=== PATIENT | female | born 1985 | race Caucasian/White ===

== ENCOUNTER 2024-11-24 12:47 | Emergency (ER) | payer OTHER, SELFPAY ==
--- OUTSIDE RECORDS SUMMARY | 2024-11-24 12:49 | XMS_ITS | Clinical Summary ---
Author Organization [facility] Address [address] [place] [address] Care Team Providers Care Steel Loader Name Role Phone Dl Flaherty MD Primary Care Provider [phone] Source Comments [facility],non-owned Affiliates and Associated Physician Practices is amultiple site organization consisting of ambulatory clinics and hospital sitesin [place], [place], [place] and [place]. This disclosure is being madepursuant to the Care Everywhere program and may not contain all information available regarding this patient. Last updated 18.[facility] Allergies No known active allergies Medications * Be aware that medications may not be up to date on this document. Alwaysverify current medications with the patient. DULoxetine HCl (CYMBALTA PO) Active ARIPiprazole (ABILIFY PO) Active metoprolol succinate XL 24hr (TOPROL XL) 50 MG tablet Take 50 mg by mouth once daily Active benzonatate (TESSALON) 200 MG capsuleIndicatio ns:Viral upper respiratory tract infection Take 1 capsule by mouth 3 times daily as needed for Cough 30 capsule 07/27/2018 Active Social History Tobacco Use Types Packs/Day Years Used Date Smoking Tobacco: Never Smokeless Tobacco: Never Tobacco Cessation:Counseling Given: Yes Comments No Sex and Gender Information Value Date Recorded Sex Assigned at Not on file Legal Sex Female 5:47 PM CDT Gender Identity Not on file Sexual Orientation Not on file Last Filed Vital Signs Vital Sign Reading Time Taken Comments Blood Pressure 118/60 07/27/2018 9:20 AM MECHANICAL ENGINEERING DIRECTOR Pulse 87 07/27/2018 9:20 AM MECHANICAL ENGINEERING DIRECTOR Temperature 36.5 C (97.7 F) 07/27/2018 9:20 AM MECHANICAL ENGINEERING DIRECTOR Respiratory Rate - - Oxygen Saturation 99% 07/27/2018 9:20 AM MECHANICAL ENGINEERING DIRECTOR Inhaled Oxygen Concentration - - Weight 99.8 kg (220 lb) 07/27/2018 9:20 AM MECHANICAL ENGINEERING DIRECTOR Height 162.6 cm (5' 4) 07/27/2018 9:20 AM MECHANICAL ENGINEERING DIRECTOR Body Mass Index 37.76 07/27/2018 9:20 AM MECHANICAL ENGINEERING DIRECTOR Plan of Treatment Health Maintenance Due Date Last Done Comments HIV SCREENING 2001 HEPATITIS C SCREENING 11/01/2004 DTAP/TDAP/TD VACCINES (1 - Tdap) 2005 HEPATITIS B VACCINE (1 of 3 - 19+ 3-dose series) 2005 PAP with HPV 2016 COVID-19 VACCINE ( - 2023-2 5 season) 2024 DEPRESSION SCREENING 06/20/2024 INFLUENZA VACCINE (Season Ended) 2025 ZOSTER VACCINE (1 of 2) 2036 HIB VACCINE Aged Out No longer eligi ble based on patient's age to complete this topic HPV VACCINE Aged Out No longer eligi ble based on patient's age to complete this topic MENINGOCOCCAL (Group B) VACC INE SHARED DECISION-MAKING Aged Out No longer eligibl e based on patient's age to complete this topic MENINGOCOCCAL GROUPS A/C/Y/W VACCINE Aged Out No longer eligible b ased on patient's age to complete this topic PNEUMOCOCCAL VACCINE Aged Out No long er eligible based on patient's age to complete this topic Insurance Care Teams Steel Loader Relationship Specialty Start Date End Date Dl Flaherty MD PCP - General Family Medicine 09/23/17
--- OUTSIDE RECORDS SUMMARY | 2024-11-24 12:49 | XMS_ITS | Encounter Summary ---
Author Organization [facility] Address [address] [place] [address] Care Team Providers Care Labor Operator Name Role Phone Leo Sharpe MD Primary Care Provider [phone] Encounter Details Date Type Department Care Team (Late Contact Info) Description 05/18/2022 Abstract [facility] [place] [address] [facility] [address] [place] [address] Vikas Barnes, DO [address] [place] [address] Social History Tobacco Use Types Packs/Day Years Used Date Smoking Tobacco: Never Smokeless Tobacco: Never Alcohol Use Standard Drinks/Week Comments Yes 0 (1 standard drink = 0.6 oz pur e alcohol) occ Comments No Sex and Gender Information Value Date Recorded Sex Assigned at Not on file Legal Sex Female 6:10 AM BOARD LINER OPERATOR Gender Identity Not on file Sexual Orientation Not on file 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 [address] 07/22/2025 8:30 AM BOARD LINER OPERATOR Office Visit [facility] at the [facility] [address] [place] [address] Justino Velasquez MD [address] [address] [place] [address] documented as of this encounter Visit Diagnoses Not on filedocumented in this encounter Care Teams Labor Operator Relationship Specialty Start Date End Date Leo Sharpe MD [address] [place] [phone] PCP - General Family Practice 11/07/20 documented as of this encounter
--- OUTSIDE RECORDS SUMMARY | 2024-11-24 12:49 | XMS_ITS | Encounter Summary ---
Author Organization [facility] Address [address] [place] [address] Care Team Providers Care Humid System Operator Name Role Phone Leo Sharpe MD Primary Care Provider [phone] Encounter Details Date Type Department Care Team (Late Contact Info) Description 05/18/2022 Abstract [facility] Surgical Spec [place] [address] [facility] [address] [place] [address] Vikas Barnes, DO [address] [facility] 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 [facility] [facility] [address] [address] 07/22/2025 8:30 AM REHABILITATION COORDINATOR Office Visit [facility] Urology at the [facility] [address] [place] [address] Justino Velasquez MD [address] [facility] [address] [place] [address] documented as of this encounter Visit Diagnoses Not on filedocumented in this encounter Care Teams Humid System Operator Relationship Specialty Start Date End Date Leo Sharpe MD [address] [place] [phone] PCP - General Family Practice 11/07/20 documented as of this encounter
--- OUTSIDE RECORDS SUMMARY | 2024-11-24 12:49 | XMS_ITS | Clinical Summary ---
Author Organization [facility] Address [address] [place] [address] Phone Care Team Providers Care Ehs Manager Name Role Phone Leo Sharpe MD Primary Care Provider [phone] Allergies No known active allergies Medications DULoxetine (CYMBALTA) 30 mg Capsule, Delayed Release(E.C.) 3 6 Active metoprolol succinate (TOPROL XL) 50 mg Extended Release 24 hour tablet Take 1 Tablet (50 mg) by mouth daily. 30 Tablet 9 Active bupropion HCl (WELLBUTRIN ORAL) Take by mouth. Activ e ARIPiprazole (ABILIFY) 5 mg tablet Take 5 mg by mouth daily. Active hydroCHLOROthia zide 25 mg tablet Take 12.5 mg by mouth daily. 3 Active metroNIDAZOLE (FLAGYL) 500 mg tablet Take 1 Tablet (500 mg) by mouth 2 times daily. take with meals, avoid alcohol during treatment and for 3 days after last dose 14 Tablet 5 Active Active Problems Problem Noted Date Diagnosed Date Acute head injury without loss of consciousness 02/13/2019 Adjustment disorder with anxiety 06/05/2015 Vaginal discharge 12/16/2011 Resolved Problems Problem Noted Date Diagnosed Date Resolved Date Well woman exam with routine gynecological exam 03/16/2012 10/16/2021 Encounters Date Type Department Care Team Description 11/22/2024 11:59 PM CDT Anesthesia Event [facility] S [facility] [address] [place] [address] Gianfranco Lopez, AA-C 11/08/2024 External Device Data STL ABSTRACTION Provider, Abstract 2024 External Device Data STL ABSTRACTION Provider, Abstract 10/02/2024 External Device Data STL ABSTRACTION Provider, Abstract 09/05/2024 External Device Data STL ABSTRACTION Provider, Abstract 09/05/2024 External Device Data STL ABSTRACTION Provider, Abstract 08/25/2024 External Device Data STL ABSTRACTION Provider, Abstract 08/24/2024 External Device Data STL ABSTRACTION Provider, Abstract from Last 3 Months Immunizations Immunization Administration Dates Next Due Influenza Seasonal Unspecifi ed Formulation IM 09/06/2024,03/29/2019,04/20/2018 Family History Medical History Relation Name Comments Healthy Father Hypertension Mother Breast Cancer Neg Hx Colon Cancer Neg Hx Ovarian Cancer Neg Hx Relation Name Status Comments Father Alive Mother Alive Social History Tobacco Use Types Packs/Day Years Used Date Smoking Tobacco: Never Smokeless Tobacco: Never Tobacco Cessation:Counseling Given: Yes Alcohol Use Standard Drinks/Week Comments Not Currently 0 (1 standard drink = 0.6 oz pur e alcohol) occ Comments No Sex and Gender Information Value Date Recorded Sex Assigned at Not on file Legal Sex Female 6:10 AM KEY PUNCH TEACHER Gender Identity Not on file Sexual Orientation Not on file 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 t on file Last Filed Vital Signs Vital Sign Reading Time Taken Comments Blood Pressure 136/93 07/02/2024 12:57 PM KEY PUNCH TEACHER Pulse 88 07/02/2024 12:57 PM KEY PUNCH TEACHER Temperature 36.8 C (98.2 F) 07/02/2024 12:57 PM KEY PUNCH TEACHER Respiratory Rate 20 07/20/2024 9:18 AM KEY PUNCH TEACHER Oxygen Saturation 98% 07/02/2024 12:57 PM KEY PUNCH TEACHER Inhaled Oxygen Concentration - - Weight 125.6 kg (277 lb) 07/20/2024 9:18 AM KEY PUNCH TEACHER Height 162.6 cm (5' 4) 07/02/2024 12:57 PM KEY PUNCH TEACHER Body Mass Index 47.55 07/02/2024 12:57 PM KEY PUNCH TEACHER Plan of Treatment Upcoming Encounters Date Type Department Care Team (Late st Contact Info) Description 01/18/2025 1:30 PM CDT Office Visit [facility] SWING TYPE LATHE OPERATOR - [address] [place] [address] John Tirado MD [address] [address] [address] 07/22/2025 8:30 AM KEY PUNCH TEACHER Office Visit [facility] Urology at the [facility] [address] [place] [address] Justino Velasquez MD [address] [facility] [address] [place] [address] Health Maintenance Due Date Last Done Comments DTAP/TDAP/TD VACCINES (1 - Tdap) 2005 HEPATITIS B VACCINES (1 of 3 - 19+ 3-dose series) 2005 Pre-Diabetes and Diabetes Screening 12/15/2014 12/16/2011 COVID-19 Vaccine ( season) 2024 02/09/2021 Preventative Visit- Commercial 06/20/2024 11/16/2022, 10/31/2020, 07/03/2018, Additional history exists PAP SMEAR 11/16/2025 11/16/2022, 10/18, 07/03/2018, Additional history exists CERVICAL CANCER SCREENING 11/17/2027 HPV/Cotest (21-29) 11/17/2027 11/16/2022, 0 10/31/2020, 07/03/2018, Additional history exists HPV/Cotest (30-65) 11/17/2027 11/16/2022, 0 10/31/2020, 07/03/2018, Additional history exists INFLUENZA VACCINE Completed 09/06/2024, , 02/21/2019, Additional history exists HPV VACCINES Aged Out No longer eligi ble based on patient's age to complete this topic Procedures Procedure Name Priority Date/Time Associated Diagnosis Comments CERV/VAG CYTO AGE BASED SCREEN PAP Routine 11/16/2022 4:00 PM CDT Screening for cervical cancer Well woman exam with routine gynecological exam HEMOGLOBIN A1C Routine 12/16/2011 4:33 PM CDT from Last 3 Months or Most Recently Relevant to Health Maintenance Results * CERV/VAG CYTO AGE BASED SCREEN PAP (11/16/2022 4:00 PM CDT) COMMENT (PAP): [facility] Comment: This order for age-based cervical cancer and STI screening follows ACOG guidelines(PB 168, 140, MAU309). See individual assays for performing site location. CLINICAL INFORMATION [facility] Comment:None given LAST MENSTRUAL PERIOD [facility] Comment:NONE GIVEN PREV PAP: [facility] Comment:NONE GIVEN PREV BX: [facility] Comment:NONE GIVEN SOURCE [facility] Comment:Endocervix ADEQUACY: [facility] Comment: Satisfactory for evaluation. Endocervical/transformation zone component present. Age and/or menstrual status not provided PAP INTERP [facility] Comment:Negative for intraep ithelial lesion or malignancy. COMMENT (PAP TEST) [facility] Comment: This Pap test has been evaluated with computer assisted technology. MACHINE ENGINEER: Aayush Blake Comment: AMTA Watkins(ASCP) CT screening location: [place] [address] [place] [address] REVIEW MACHINE ENGINEER: [facility] Comment: CEDRICK CT(ASCP) CT screening location: [place] [address] [place] [address] Nicanor Blake Comment: EXPLANATORY NOTE: The Pap is a screening test for cervical cancer. It is not a diagnostic test and is subject to false negative and false positive results. It is most reliable when a satisfactory sample, regularly obtained, is submitted with relevant clinical findings and history, and when the Pap result is evaluated along with historic and current clinical information. HPV E6/E7 Not Detected Not Detected [facility] Comment: Methodology: Digital Media Analyst-Mediated Amplification This assay detects E6/E7 viral messenger RNA (mRNA) from 14 high-risk HPV types (16,18,31,33,35,39,45,51,52,56,58,59,66,68). Cervical sources are required for HPV testing. If a vaginal source from a patient who has had a total hysterectomy with removal of cervix was submitted, please contact the testing laboratory for alternative testing options. For additional information, please refer to http://education.Triblio/faq/CUA323r2 (This link if provided for information/ educational purposes only.) Test Performed at: [email or web address] [address] [place] [address] Louise PHILLIPS Genital SWAB OF ENDOCERVIX / Unknown 11/16/2022 4:00 PM CDT 11/17/2022 12:04 AM CDT us Geovanna Zuñiga NP PATHOLOGY/CYTOLOGY ORDERABLES Fi nal Result Performing Organization Address [facility] Co de Phone Number [facility] [phone] [facility] [address] * HEMOGLOBIN A1C (12/16/2011 4:33 PM CDT) HEMOGLOBIN A1C 5.2 <5.7 % of total Hgb [facility] Comment: Decreased risk of diabetes <5.7 Decreased risk of diabetes 5.7-6.0 Increased risk of diabetes 6.1-6.4 Higher risk of diabetes > or = 6.5 Consistent with diabetes Standards of Medical Care in Diabetes-2010. Diabetes Care, 33(Supp 1): S1-S61,2010. Test Performed at: [facility] [address] ROWENA SAGE DO,MPH 12/16/2011 4:33 PM CDT us John Tirado MD CHEMISTRY ORDERABLES Final Re sult INTERFACE SYSTEM Refer to clinic/hospital department [facility] [place] [facility] [address] [place] [address] from Last 3 Months or Most Recently Relevant to Health Maintenance Insurance R [employer] CHOICE [id number] Care Teams Ehs Manager Relationship Specialty Start Date End Date Leo Sharpe MD [address] [place] [address] PCP - General Family Practice 11/07/20
--- OUTSIDE RECORDS SUMMARY | 2024-11-24 12:49 | XMS_ITS | Encounter Summary ---
Author Organization [facility] Address [address] [place] [address] Care Team Providers Care Recycling Program Manager Name Role Phone Leo Sharpe MD Primary Care Provider [phone] Reason for Visit * Auth/Cert (Routine) Specialty Diagnoses / Procedures Referred By Contact Referred To Contact Perioperative Diagnoses Gastroesophageal reflux disease Procedures [place] ESOPHAGOGASTRODUODENOSCOPY TRANSORAL DIAGNOSTIC ESOPHAGOGASTRODUODENOSCOPY Vikas Barnes, DO [address] [address] Phone: tel:[phone] fax:[phone] [facility] [address] [place] [address] Phone: tel:[phone] fax:[phone] Referral ID Status Reason Start Date Expiration Date Visits Re quested Visits Authorized [id number] 1 1 Encounter Details Date Type Department Care Team (Late st Contact Info) Description 11/23/2024 11:59 PM CDT Anesthesia Event [facility] [place] [address] [facility] [address] Gianfranco Lopez AA-C [address] [place] [address] Anesthesia Record Procedure Summary Procedure Name Responsible Anesthesiologist Anesthesia Start Time Anesthesia Stop Time ESOPHAGOGASTRODUODENOSCOPY (canceled) Events No events on file. Meds * Agents No agents on file. * Blood No blood administrations on file. Lines, Drains, and Airways No LDAs on file. 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 [facility] [facility] [address] [address] 07/22/2025 8:30 AM FIELD MARKETING SPECIALIST Office Visit [facility] Urology at the [facility] [address] [address] [place] [address] Justino Velasquez MD [address] [facility] [address] [place] [address] documented as of this encounter Visit Diagnoses Not on filedocumented in this encounter Care Teams Recycling Program Manager Relationship Specialty Start Date End Date Leo Sharpe MD [address] [place] [address] PCP - General Family Practice 11/07/20 documented as of this encounter
--- OUTSIDE RECORDS SUMMARY | 2024-11-24 12:49 | XMS_ITS | Clinical Summary ---
Author Organization [facility] Address [address] [place] [address] Phone Care Team Providers Care Hat Cutter Name Role Phone Saji Long MD Primary Care Provider [phone] Allergies No known active allergies Medications DULoxetine (CYMBALTA) [address] Perez tions:Generaliz ed Anxiety Disorder,Major Depressive Disorder Take 30 mg by mouth 3 times daily. Indications: Generalized Anxiety Disorder, Major Depressive Disorder Active buPROPion SR (WELLBUTRIN SR) 100 MG TABLET SR 12 HR Take 100 mg by mouth daily. 4 Active hydroCHLOROthia zide (MICROZIDE) 12.5 MG Capsule Take 1 Capsule by mouth daily. 4 Active metoprolol Succinate (TOPROL-XL) 50 MG TABLET SR 24 HR Take 50 mg by mouth daily. 4 Active Active Problems Problem Noted Date Diagnosed Date Adjustment disorder with anxiety 06/05/2015 Family History Medical History Relation Name Comments Alcohol Abuse Father Depression Father Depression Mother Depression Paternal Grandfather Relation Name Status Comments Father Mother Paternal Grandfather Social History Tobacco Use Types Packs/Day Years Used Date Smoking Tobacco: Some Days Cigarettes Tobacco Cessation:Ready to Q uit: Not Asked; Counseling Given: Not Answered Alcohol Use Standard Drinks/Week Comments No 0 (1 standard drink = 0.6 oz pur e alcohol) Comments No Sex and Gender Information Value Date Recorded Sex Assigned at Not on file Legal Sex Female 8:54 PM CDT Gender Identity Not on file Sexual Orientation Not on file Last Filed Vital Signs Vital Sign Reading Time Taken Comments Blood Pressure 118/73 08/14/2023 1:30 AM DIGITAL COMMUNITY MANAGER Pulse 83 08/14/2023 1:30 AM DIGITAL COMMUNITY MANAGER Temperature 36.4 C (97.6 F) 08/14/2023 12:00 AM DIGITAL COMMUNITY MANAGER Respiratory Rate 18 08/14/2023 1:30 AM DIGITAL COMMUNITY MANAGER Oxygen Saturation 97% 08/14/2023 1:30 AM DIGITAL COMMUNITY MANAGER Inhaled Oxygen Concentration - - Weight 121.6 kg (268 lb) 08/14/2023 12:00 AM DIGITAL COMMUNITY MANAGER Height 162.6 cm (5' 4) 08/14/2023 12:00 AM DIGITAL COMMUNITY MANAGER Body Mass Index 46 08/14/2023 12:00 AM DIGITAL COMMUNITY MANAGER Plan of Treatment Health Maintenance Due Date Last Done Comments Hepatitis C Virus (HCV) Screening 1986 TdaP Immunization 1986 Hepatitis B Immunization (1 of 3 - 19+ 3-dose series) 2005 Pneumococcal Immunization Combined (1 of 2 - PCV) 2005 Pap Smear 11/07/2007 Cervical Cancer Screening (CCS) 2016 HPV/Cotest 2016 SARS-COV-2 Immunization (2 - season) 2024 02/09/2021 Influenza Immunization (Seas on Ended) 2025 03/29/2019, 04/20/2018 Respiratory Syncytial Virus (RSV) Immunization (Adult) (1 - 1-dose 75+ series) 2061 Human Papillomavirus (HPV) Immunization Aged Out No longer eligible b ased on patient's age to complete this topic Meningococcal Immunization (ACWY) Aged Out No longer eligible b ased on patient's age to complete this topic Rotavirus Immunization Aged Out No lo nger eligible based on patient's age to complete this topic [place] [place] [address] Care Teams Hat Cutter Relationship Specialty Start Date End Date Saji Long MD [facility] [place] [address] PCP - General Tube Bender 08/14/23
--- OUTSIDE RECORDS SUMMARY | 2024-11-24 12:49 | XMS_ITS | Encounter Summary ---
Author Organization [facility] Address [address] [place] [address] Care Team Providers Care Educational Interpreter Name Role Phone Leo Sharpe MD Primary Care Provider [phone] Encounter Details Date Type Department Care Team (Late Contact Info) Description 07/05/2024 Results Follow-Up [facility] - [facility] [address] [facility] [place] [address] [place] [address] Gracy Lee, TIFFANY [address] [facility] [address] [place] [address] VAGINOSIS/VAGINITIS PANEL BASIC, URINE CULTURE Social History Tobacco Use Types Packs/Day Years Used Date Smoking Tobacco: Never Smokeless Tobacco: Never Alcohol Use Standard Drinks/Week Comments Not Currently 0 (1 standard drink = 0.6 oz pur e alcohol) occ Comments No Sex and Gender Information Value Date Recorded Sex Assigned at Not on file Legal Sex Female 6:10 AM CLINICAL DIRECTOR Gender Identity Not on file Sexual Orientation Not on file 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 Not on file No t on file documented as of this encounter Plan of Treatment Upcoming Encounters Date Type Department Care Team (Late Contact Info) Description 01/18/2025 1:30 PM CDT Office Visit [facility] - [facility] [address] [facility] [address] [place] [address] John Tirado MD [address] [place] [address], [place] [address] 07/22/2025 8:30 AM CLINICAL DIRECTOR Office Visit [facility] [address] [facility] [address] [place] [address] Justino Velasquez MD [address] [facility] [address] [place] [address] documented as of this encounter Visit Diagnoses Not on filedocumented in this encounter Care Teams Educational Interpreter Relationship Specialty Start Date End Date Leo Sharpe MD [facility] [place] [address] PCP - General Family Practice 11/07/20 documented as of this encounter
--- OUTSIDE RECORDS SUMMARY | 2024-11-24 12:51 | XMS_ITS ---
Author Organization [facility] Address [address] [facility] [address] [place], [place] [id number] Care Team Providers Care Connie Cleaner Name Role Phone Cameron SALDANA Vikas Unavailable [phone] Allergies Allergen (clinical drug ingredient) Drug/Non Drug Allergy documented on EMR Reaction Allergy Type Onset Date Status Animal dander ANIMAL DANDER (uncoded) Unknown Allergy Active Tree and shrub pollen TREE AND SHRUB ALBERT ZORAIDA (uncoded) Unknown Allergy Active Mold Unknown Allergy Active REASON FOR VISIT EST. pt, coming back to regroup Medications Medication SIG (Take, Route, Frequency, Duration) Notes Start Date End Date Status DULoxetine HCl 30 MG Oral Unknown hydroCHLOROthiazide 25 MG 1 tablet in th e morning Orally Once a day Unknown Abilify Unknown Wellbutrin *Reorder from [employer] for eRx and Interaction Alerts* Unknown Metoprolol Tartrate Unknown DULoxetine HCl 60 MG 1 capsule Orally Once a day Unknown Encounters Encounter Location Date Provider Diagnosis [facility] [address] [facility] [address] [place], [place] [id number] 11/01/2024 Vikas Barnes Assessments Encounter Date Diagnosis (ICD Code) Assessment Notes Treatment Notes Treatment Clinical Notes Section Notes 11/01/2024 Other Plan Of Treatment No Information Procedure Notes * Category Sub-Category Detail Notes SURGICAL PLAN Consults: Consult rd carter nutrition for: months of preoperative supervised diets, consult bariatric psychology, consult primary care physician for medical clearance/recommendation, consult anesthesia/PACE clinic for preoperative clearance Diagnostic Tests: Test: CBC, CMP, Lipi d Panel, LFTs, Thyroid, Function, Vit B-1, Vit B-12, Iron Levels, H.Pylori, CXR, EKG, Coloniscopy, EGD, UGI Surgical Procedure: 1. Laparoscopic: . I have us e an anatomical chart to show the postsurgical changes that occur. I discussed expected weight loss and about common early & late complications associated with the procedure; including, but not limited to, leaks, strictures, bleeding, infection, hernia, and small bowel obstructions. Discussed dumping syndrome in detail & how dietary choices can worsen this. I discussed the need for postoperative vitamins lifelong. I have discussed postsurgical follow-up. I discussed the need for supervised bariatric nutrition prior to surgery as well as mental health evaluation. Progress Notes * ROSALINDA LINDODOB:1985 (39 yo F)Acc No.[id number]:11/01/2024 Patient: ROSALINDA LUJAN Provider: Adam Barnes DO :1985 A ge:38 Y S ex:Female Date:11/01/2024 Address:[address] [place], [place] [address] Subjective: * Chief Complaints: * 1 . EST. pt, coming back to regroup. * HPI: B ariatrics: BARIATRIC HISTORY AND PHYSICAL P chace is a very pleasant adult who presents with complaints of morbid obesity with significant comorbidities despite multiple failed attempts at weight loss through dietary & exercise programs. Her weight is severely limiting her physical activity & overall lifestyle. She has been obese for several years . T sharronbob are interested in learning about possible surgical options to help their fight against obesity. Aforementioned attempts at weight loss have included a variety of exercise routines, exercise videos, low-fat/low-calorie diets, and commercial weight loss programs, such as Weight Watchers . P atient d oes complain of food-related gastroesophageal reflux a nd patient d enies dysphagia. O BESITY-RELATED COMORBIDITIES: G astroesophageal Reflux disease (GERD),Back Pain,Arthritis Tobacco Counseling: P chace i s not a tobacco/nicotine user. * ROS: G eneral / Constitutional: Patient: denies chills, fever, unexpected weight loss, weakness. H EENT: Patient: d enies double vision, hearing loss, epistaxis, sore throat. E ndocrine: Patient: d enies cold intolerance, heat intolerance, flushing, fingernail changes, increased thirst, increased salt intake, decreased sexual desire. R espiratory: Patient: denies cough, w aking at night coughing or choking, repeated pneumonias, wheezing, or night sweats. C ardiovascular: Patient: d enies chest pain, irregular heart beats, shortness of breath, or syncope.Endorses dyspnea on exertion. G astrointestinal: Patient: d enies blood in stool, constipation, diarrhea, regurgitation, nausea and vomiting, frequent belching, black tarry stools, or h emorrhoids. ? H ematology: Patient: d enies easy bruising, bleeding. G enitourinary: Patient: d enies pain or burning with urination, blood in the urine. M usculoskeletal: Patient: d enies arm, buttock, thigh or calf cramps.Endorses joint pain and back pain. S kin: Patient: d enies easy bruising, skin redness, skin rash, hives. N eurologic: Patient: denies h eadache, dizziness, fainting, muscle spasm, loss of consciousness, sensitivity or pain in the hands and feet, memory loss. ? P sychiatric: Patient: d enies depression, anxiety, suicidal thoughts, homicidal thoughts. I mmunological:: Patient: denies tuberculosis, hepatitis, HIV/AIDS.? * Medical History: A nxiety, Depression, Hypertension, Snoring, Gastroesophageal reflux disease, Anemia, Obesity, Bipolar disorder, Joint pain, Anxiety. * Surgical History: O peration on facial joint 2002, Breast reduction, Dr. Espinal 2005. * Family History: F ather: diagnosed with H/o cancer. M other: diagnosed with Hypertension, Heart Disease.?Maternal Grandfather: diagnosed with H/o cancer. M aternal Grandmother: diagnosed with Heart Disease. * Medications: U nknown DULoxetine HCl 30 MG Capsule Delayed Release Particles Oral , Unknown Wellbutrin , Notes to Pharmacist: *Reorder from [employer] for eRx and Interaction Alerts*, Unknown Metoprolol Tartrate , Unknown hydroCHLOROthiazide 25 MG Tablet 1 tablet in the morning Orally Once a day , Unknown Abilify , Unknown DULoxetine HCl 60 MG Capsule Delayed Release Particles 1 capsule Orally Once a day * Allergies: A NIMAL DANDER: Allergy, TREE AND SHRUB POLLEN: Allergy, Mold: Allergy. Objective: * Vitals: Past Vitals:* 12/14/2023 Wt:273.2, BMI:46.89, BP:124/ 85 * 12/14/2023 Wt:273.2, BMI:46.89, BP:124/ 85 * Examination: P hysical Exam: General Appearance: O xiaoe adult who is a lert, in no acute distress. Eyes: C onjunctivae clear, sclerae normal without icterus, pupils equal, round, reactive to light and accommodation. Ears/Nose/Mouth/Throat: E xternal ears normal, canals clear, TM's normal, Nares normal, Septum midline, Mucosa normal, No drainage or sinus tenderness, Lips, mucosa, and tongue normal, teeth and gums normal, oropharynx normal. Neck: S upple, no adenopathy. Trachea midline and t hyroid symmetric, n o JVD or bruits. Respiratory: C lear to auscultation bilaterally, breathing comfortably on room air. Cardiovascular: R egular rate and rhythm, distal pulses intact bilaterally. Abdomen: S oft, non-tender, non-distended, obese. Lymph Nodes: N o cervical lymphadenopathy. Musculoskeletal: S pine range of motion normal, Muscular strength intact, No joint swelling, deformity or tenderness. Skin: N o rashes or lesions noted. Neurological: M ental status intact, CNII-XII intact, speech is clear and fluent. Psychiatric: A &O x3, judgement/insight appropriate.? Assessment: Plan: * Treatment: * Procedures: S URGICAL PLAN: Consults: C onsult bariatric nutrition for m onths of preoperative supervised diets, consult bariatric psychology, consult primary care physician for medical clearance/recommendation, consult anesthesia/PACE clinic for preoperative clearance Diagnostic Tests: T est C BC, CMP, Lipid Panel, LFTs, Thyroid, Function, Vit B-1, Vit B-12, Iron Levels, H.Pylori, CXR, EKG, Coloniscopy, EGD, UGI Surgical Procedure: 1 . Laparoscopic . I have use an anatomical chart to show the postsurgical changes that occur. I discussed expected weight loss and about common early & late complications associated with the procedure; including, but not limited to, leaks, strictures, bleeding, infection, hernia, and small bowel obstructions. Discussed dumping syndrome in detail & how dietary choices can worsen this. I discussed the need for postoperative vitamins lifelong. I have discussed postsurgical follow-up. I discussed the need for supervised bariatric nutrition prior to surgery as well as mental health evaluation. 2 .Preoperative work-up as detailed above. 3.All risks and benefits were discussed with the patient including: Intra- operative and/or Immediate Post-operative Risks: *: The mortality rate of the sleeve gastrectomy nationwide is 0.3% to 2%. Mortality rate associated with the gastric bypass is slightly higher-0.5 to 3%. *Significant Bleeding: Bleeding may occur unexpectedly in the operating room. Bleeding may also occur post-operatively in the days after the operation. This bleeding may be through the intestinal tract at the staple line and result in the passage of blood in the stool. Bleeding may also be unseen inside the abdomen and be diagnosed through other means. A transfusion may be necessary in some circumstances. Re-operation to stop bleeding may be necessary. If the spleen is injured during the surgery, it may need to be removed. *Anastomotic Leak: A leak is when the stapled part of the stomach does not heal. Serious complications can result from a leak, including, but not limited to a prolonged hospital stay, more operations, a long period of nothing to eat, prolonged antibiotic requirements, organ failure and . The reported incidence of anastomotic leak nationwide ranges from 0.5% to 3%. *Renal Failure: Transient kidney (renal) failure occurs rarely. Irreversible kidney failure has been reported in rare cases. *Prolonged Ventilation: A prolonged stay on a ventilator (breathing machine) in the intensive care unit may occur if a patient has severe sleep apnea or after certain significant complications. A temporary tracheostomy may be necessary. *Heart Attack: Although a heart attack is possible after a laparoscopic possible open sleeve gastrectomy, it is very rare. Risk factors for heart disease include increased age, diabetes, hypertension, hypercholesterolemia and a family history of heart disease. *Prolonged Hospital Stay: Unforeseen complications may result in a prolonged hospital stay. Intensive care admission may be required. *Bowel Obstruction (in undergoing the gastric bypass): An obstruction can occur from a number of causes, such as bleeding, scarring, technical problems or hernia, & may require reoperation. *Deep Vein Thrombosis (DVT)/Pulmonary Embolism: Blood clots that form in the legs, and elsewhere, and break off into the lungs may cause . Given this risk, treatments may be initiated to decrease the risk for the formation of blood clots, including the use of heparin (a medication that thins the blood), special foot and leg stockings, walking soon after surgery and medication at home after discharge from the hospital. Completely eliminating the risks of DVT (clots) altogether is not possible. The risks associated with the medications used to prevent blood clots can include excessive bleeding. Any symptoms of leg swelling, chest pain or sudden shortness of breath should be immediately reported to the surgeon. Rarely, patients develop allergies to heparin, sometimes causing very severe reactions. *Other Complications that may be common: Allergic reactions, headaches, itching, medication side-effects, heartburn/reflux, bruising, gout, anesthetic complications, injury to the bowel or vessels, gas bloating, minor wound drainage, wound opening, scar formation, stroke, urinary tract infection, urinary retention, pressure sores, injury to spleen or surrounding structures, and pneumonia. * Billing Information: * Visit Code: * Procedure Codes: * Electronic signature of Olegario Barnes DO, [id number] on 11/24/2024 at 12:51 PM CDT Sign off status: Pending * Provider: Adam Barnes DO Date: 0 11/01/2024 Generated for Mook rajput/Tammy/Lasha on: 0 11/24/2024 12:51 PM CDT History and Physical Notes * HPI (History of Present Illness) Category Sub-Category Detail Notes Category Not es Bariatrics BARIATRIC HISTORY AN D PHYSICAL Patient is a very pleasant adult who presents with complaints of morbid obesity with significant comorbidities despite multiple failed attempts at weight loss through dietary & exercise programs. Her weight is severely limiting her physical activity & overall lifestyle. She has been obese for several years: . They are interested in learn ing about possible surgical options to help their fight against obesity. Aforementioned attempts at weight loss have included a variety of exercise routines, exercise videos, low-fat/low-calorie diets, and commercial weight loss programs, such as Weight Watchers: . Patient: does complain of food-related g astroesophageal reflux and patient: denies dysphagia. OBESITY-RELATED COMORBIDITIE S:: Gastroesophageal Reflux disease (GERD),Back Pain,Arthritis Tobacco Counseling: Patient: is not a tobacco/ni cotine user. Examination Category Sub-Category Detail Notes Category Not es Physical Exam General Appearance: Obese adult who is alert, in no acute distress Eyes: Conjunctivae clear, sclerae normal without icterus, pupils equal, round, reactive to light and accommodation Ears/Nose/Mouth/Throat: External ears no rmal, canals clear, TM's normal, Nares normal, Septum midline, Mucosa normal, No drainage or sinus tenderness, Lips, mucosa, and tongue normal, teeth and gums normal, oropharynx normal Neck: Supple, no adenopath y. Trachea midline and thyroid symmetric, no JVD or bruits Respiratory: Clear to auscultatio n bilaterally, breathing comfortably on room air Cardiovascular: Regular rate and rhy thm, distal pulses intact bilaterally Abdomen: Soft, non-tender, no n-distended, obese Lymph Nodes: No cervical lymphade nopathy Musculoskeletal: Spine range of motio n normal, Muscular strength intact, No joint swelling, deformity or tenderness Skin: No rashes or lesions noted Neurological: Mental status intact , CNII-XII intact, speech is clear and fluent Psychiatric: A&O x3, judgement/in sight appropriate
--- OUTSIDE RECORDS SUMMARY | 2024-11-24 12:51 | XMS_ITS ---
Author Organization [facility] Address [address] [place], [place] [address] Care Team Providers Care Pediatric Allergist Name Role Phone Vikas Barnes DO Unavailable [phone] REASON FOR VISIT EGD Encounters Encounter Location Date Provider Diagnosis [facility] [address] [place] [address] 11/23/2024 Vikas Barnes Plan Of Treatment No Information Progress Notes * ROSALINDA LINDODOB:1985 (39 yo F)Acc No.[id number]:11/23/2024 Patient: ROSALINDA LUJAN Provider: Adam Barnes DO :1985 A ge:39 Y S ex:Female Date:11/23/2024 Address:[address] [place], [place] [address] * Billing Information: * Visit Code: * Procedure Codes: * Electronic signature of Olegario Barnes DO, [id number] on 11/24/2024 at 12:51 PM CDT Sign off status: Pending * Provider: Adam Barnes DO Date: 11/23/2024 Generated for Mook ng/Fatamra/eTransmitting on: 11/24/2024 12:51 PM CDT
--- OUTSIDE RECORDS SUMMARY | 2024-11-24 12:51 | XMS_ITS | Patient Health Record ---
Author Organization [facility] [employer] [facility] Address [address] [place] [address] Care Team Providers Care Electrician'S Helper Name Role Phone Saji Long MD Primary Care Provider Chong Borges Unavailable [phone] Reason For Referral No Information Medications Medication SIG (Take, Route, Frequency, Duration) Notes Start Date End Date Status Lexapro 10 MG Oral Active Viibryd 20 MG Oral Active metroNIDAZOLE 0.75 % Vaginal Active Citalopram Hydrobromide 10 MG Oral Active Amoxicillin 875 MG Oral A ctive Fluconazole 150 MG Oral A ctive Citalopram Hydrobromide 20 MG Oral Active DULoxetine HCl 60 MG Oral Active Metoprolol Succinate ER 50 MG Oral Active metroNIDAZOLE 500 MG Oral Active ARIPiprazole 5 MG Oral Ac tive DULoxetine HCl 30 MG Oral Active Social History Sex Assigned At : Social History Observation Description Sex Assigned At Female Encounters En[facility] [address] [facility] [address] [place] [address] 05/14/2024 Chong Geiger Plan Of Treatment No Information Insurance Providers Payer Name Payer Address Payer Phone Subscriber Number Group Number Insured Name Patient Relationship to Insured Coverage Start Date Coverage End Date [employer] [address] [place] [address] [id number] GUICHO ROSALINDA Self - patient is the insured
--- OUTSIDE RECORDS SUMMARY | 2024-11-24 12:51 | XMS_ITS ---
Author Organization [facility] Address [address] [id number] Care Team Providers Care Cat Scanner Operator Name Role Phone Vikas Barnes DO Unavailable [phone] REASON FOR VISIT EST. pt, coming back to regroup Encounters Encounter Location Date Provider Diagnosis [facility] [address] [id number] 11/15/2024 Vikas Barnes Plan Of Treatment No Information Progress Notes * GUICHO ROSALINDADOB:1985 (39 yo F)Acc No.[id number]:11/15/2024 Patient: ROSALINDA LUJAN Provider: Adam Barnes DO :1985 A ge:39 Y S ex:Female Date:11/15/2024 Address[address] Subjective: * Chief Complaints: * 1 . EST. pt, coming back to regroup. * Medical History: Objective: * Vitals: Past Vitals:* 12/14/2023 Wt:273.2, BMI:46.89, BP:124/ 85 * 12/14/2023 Wt:273.2, BMI:46.89, BP:124/ 85 Assessment: Plan: * Treatment: * Billing Information: * Visit Code: * Procedure Codes: * Electronic signature of Olegario Barnes DO, [id number] on 11/24/2024 at 12:50 PM CDT Sign off status: Pending * Provider: Adam Barnes DO Date: 11/15/2024 Generated for Mook rajput/Tammy/Charitysmitting on: 0 11/24/2024 12:50 PM CDT
--- OUTSIDE RECORDS SUMMARY | 2024-11-24 12:52 | XMS_ITS | Patient Health Record ---
Author Organization [facility] Loss Address [address] [facility] [address] [place], [place] [id number] Care Team Providers Care Seam Presser Name Role Phone Vikas Barnes DO Unavailable [phone] Dale LEACH Gwen Unavailable [phone] Allergies Allergen (clinical drug ingredient) Drug/Non Drug Allergy documented on EMR Reaction Allergy Type Onset Date Status Animal dander ANIMAL DANDER (uncoded) Unknown Allergy Active Tree and shrub pollen TREE AND SHRUB ALBERT ZORAIDA (uncoded) Unknown Allergy Active Mold Unknown Allergy Active Reason For Referral No Information Medications Medication SIG (Take, Route, Frequency, Duration) Notes Start Date End Date Status DULoxetine HCl 30 MG Oral Unknown hydroCHLOROthiazide 25 MG 1 tablet in th e morning Orally Once a day Unknown Abilify Unknown Wellbutrin *Reorder from Fobbler for eRx and Interaction Alerts* Unknown Metoprolol Tartrate Unknown DULoxetine HCl 60 MG 1 capsule Orally Once a day Unknown Problems Problem Type SNOMED Code ICD Code Onset Dates Problem Status W/U Status Risk Notes Problem Gastro-esophage al reflux disease without esophagitis (072898935) Gastro-esophagea l reflux disease without esophagitis (K21.9) Active confirmed Problem 19062499 Essential hypertension (I10) Active confirmed Problem 630159020 Morbid obesity (E66.01) Active confirmed Problem 037219819 BMI 45.0-49.9, adult (Z68.42) Active confirmed Problem 398410777 Generalized arthritis (M19.90) Active confirmed Problem 51820175 Anxiety (F41.9) Active confirmed Problem 276261196 Chronic depression (F32.A) Active confirmed Problem 587939227 Dorsalgia (M54.9) Active confirmed Problem 91766172 Bipolar disease, chronic (F31.9) Active confirmed Vital Signs Heart Rate 96 /min 12/14/2023 Temperature 97.4 degrees Fahrenheit 12/14/2023 Height-cm 162.56 cm 12/14/2023 Blood pressure diastolic 85 mm Hg 12/14/2023 Oximetry 98 % 12/14/2023 Weight-kg 123.92 kg 12/14/2023 Height 64 in 12/14/2023 Blood pressure systolic 124 mm Hg 12/14/2023 Weight 273.2 lbs 12/14/2023 BMI 46.89 kg/m2 12/14/2023 Procedures Procedure Date Ordered Date Performed Result Body Sit e ESOPHAGOGASTRODUODENOSCOPY 12/14/2023 N/A ESOPHAGOGASTRODUODENOSCOPY 02/28/2024 N/A Encounters Encounter Location Date Provider Diagnosis [facility] EGD [address] [address] 11/23/2024 Vikas Barnes [facility] [address] [id number] 12/14/2023 Vikas Barnes Gastro-esophageal reflux disease without esophagitis K21.9 ; Morbid obesity E66.01 ; BMI 45.0-49.9, adult Z68.42 ; Bipolar disease, chronic F31.9 ; Chronic depression F32.A ; Essential hypertension I10 ; Anxiety F41.9 ; Dorsalgia M54.9 and Generalized arthritis M19.90 [facility] [address] [id number] 12/14/2023 Gwen Hunter Dietary counseling and surveillance Z71.3 ; Morbid obesity E66.01 and Morbid (severe) obesity due to excess calories 278.01 [facility] [address] [id number] 02/28/2024 Vikas Barnes Gastro-esophageal reflux disease without esophagitis K21.9 [facility] [address] [id number] 04/11/2024 Vikas Barnes [facility] [address] [id number] 04/30/2024 Vikas Barnes [facility] [address] [id number] 05/11/2024 Vikas Barnes [facility] [address] [place], [place] [id number] 10/19/2024 Vikas Barnes [facility] [address] [place], [place] [id number] 10/24/2024 Vkias Barnes [facility] [address] [facility] [address] [place], [place] [id number] 10/26/2024 Vikas Barnes Assessments Encounter Date Diagnosis (ICD Code) Assessment Notes Treatment Notes Treatment Clinical Notes Section Notes 12/14/2023 Gastro-esophageal reflux disease without esophagitis (ICD-10 - K21.9) 12/14/2023 Morbid obesity (ICD-10 - E66.01) 12/14/2023 Dietary counseling and surveillance (ICD-10 - Z71.3) 12/14/2023 Morbid obesity (ICD-10 - E66.01) 02/28/2024 Gastro-esophageal reflux disease without esophagitis (ICD-10 - K21.9) 12/14/2023 BMI 45.0-49.9, adult (ICD-10 - Z68.42) 12/14/2023 Bipolar disease, chronic (ICD-10 - F31.9) 12/14/2023 Morbid (severe) obesity due to excess calories (ICD9-CM - 278.01) 12/14/2023 Chronic depression (ICD-10 - F32.A) 12/14/2023 Essential hypertension (ICD-10 - I10) 12/14/2023 Anxiety (ICD-10 - F41.9) 12/14/2023 Dorsalgia (ICD-10 - M54.9) 12/14/2023 Generalized arthritis (ICD-10 - M19.90) 11/01/2024 Other Plan Of Treatment Pending Test Test Name Order Date Upper gastrointestinal (UGI) series 11/19 ESOPHAGOGASTRODUODENOSCOPY 12/14/2023 ESOPHAGOGASTRODUODENOSCOPY 02/28/2024 Insurance Providers Payer Name Payer Address Payer Phone Subscriber Number Group Number Insured Name Patient Relationship to Insured Coverage Start Date Coverage End Date [facility] [place] [address] KRISTI PETERSEN [id number] ROSALINDA LINDO Self - patient is the insured Medical (General) History Medical History History ICD Code Anxiety Depression Hypertension Snoring Gastroesophageal reflux disease Anemia Obesity Bipolar disorder Joint pain Anxiety Surgical History Surgery Date(Month/Year) Operation on facial joint 2002 Breast reduction, Dr. Espinal 2005
[2024-11-24 12:57] VITALS: BP 138/59; PULSE 91; RESP 16; TEMP 36.2; O2SAT 100
--- NOTE | 2024-11-24 12:59 | ED.GENADULT ---
HPI - General Adult General Chief complaint: Upper Respiratory Infection Stated complaint: Sore Throat Source: patient Mode of arrival: ambulatory Limitations: no limitations History of Present Illness HPI narrative: Pt presents for evaluation of a sore throat for the last 2-3 days. She denies any fever, chills, cough, shortness of breath, nausea and vomiting. No recent sick contacts to her knowledge. She tried taking Tylenol for symptoms. She does not smoke. Related Data Home Medications ?Medication ?Instructions ?Recorded ?Confirmed ?Last Taken ?Type aripiprazole 5 mg tablet mg 07/01/24 Unknown History duloxetine 60 mg capsule,delayed mg PO 07/01/24 Unknown History release hydrochlorothiazide 12.5 mg capsule mg 07/01/24 Unknown History metoprolol succinate 50 mg mg PO 07/01/24 Unknown History tablet,extended release 24 hr Allergies Allergy/AdvReac Type Severity Reaction Status Date / Time No Known Allergies Allergy Verified 11/24/24 12:52 Review of Systems Review of Systems: CONSTITUTIONAL: Denies fever, chills, or sweats. EYES: Denies visual changes, redness, or discharge. ENT: Reports sore throat. Denies rhinorrhea, congestion, or otalgia. CARDIOVASCULAR: Denies chest pain, palpitations, or edema. RESPIRATORY: Denies cough or dyspnea. GASTROINTESTINAL: Denies abdominal pain, nausea, vomiting, or diarrhea. GENITOURINARY: Denies dysuria or hematuria. SKIN: Denies rash or itching. MUSCULOSKELETAL: Denies back pain, joint pain, or myalgia. NEUROLOGIC: Denies headache, numbness, dizziness, or weakness. PSYCHIATRIC: Denies anxiety or depression. [facility] Past Medical History Medical History Kidney stones Anxiety and depression Hypertension Surgical History Surgical History H/O breast augmentation Family History Family History Mother Family history non-contributory Social History Social History Smoking status: Never smoker Alcohol intake: current Alcohol use details: social Substance use: never Living arrangements: with family Exam Narrative: GENERAL: Well-appearing, well-nourished, and in no acute distress. HEAD: Normocephalic, atraumatic. EYES: PERRLA and EOMI. ENT: Nares clear, no rhinorrhea or epistaxis. Mucous membranes moist. Oropharynx without tonsillar hypertrophy exudate or other lesions. Bilateral TMs pearly hubbard nonbulging NECK: Supple. No adenopathy or masses. No carotid bruits or JVD CHEST: Clear to auscultation. No respiratory distress. No wheezes rales or rhonchi HEART: Regular rate and rhythm. No murmur heard. Normal peripheral pulses. ABDOMEN: Soft, nontender, nondistended, normal active bowel sounds. EXTREMITIES: Normal range of motion. No edema. SKIN: Warm, dry, no rash. NEURO: No focal deficits. Alert and oriented x3. PSYCH: Normal mood and affect. Course Course Emergency Course: This is a 39-year-old female who presented for evaluation of sore throat. Rapid strep negative. Will send throat culture. Follow up with primary provider. Go to the ER for worsening symptoms. Patient in agreement with plan of care. Level of Care: Express Care Visit Vital Signs Vital signs: Vital Signs Temperature 36.2 C L 11/24/24 12:57 Pulse Rate 91 11/24/24 12:57 Respiratory Rate 16 11/24/24 12:57 Blood Pressure 138/59 L 11/24/24 12:57 Pulse Oximetry 11/24/24 12:57 Oxygen Delivery Room Air 11/24/24 12:57 Temperature 36.2 C L 11/24/24 12:57 Pulse Rate 91 11/24/24 12:57 Respiratory Rate 16 11/24/24 12:57 Blood Pressure 138/59 L 11/24/24 12:57 Pulse Oximetry 11/24/24 12:57 Oxygen Delivery Room Air 11/24/24 12:57 Medical Decision Making Vital Signs Vital Signs: Vital Signs Temperature 36.2 C L 11/24/24 12:57 Pulse Rate 91 11/24/24 12:57 Respiratory Rate 16 11/24/24 12:57 Blood Pressure 138/59 L 11/24/24 12:57 Pulse Oximetry 100 11/24/24 12:57 Oxygen Delivery Room Air 11/24/24 12:57 Temperature 36.2 C L 11/24/24 12:57 Pulse Rate 91 11/24/24 12:57 Respiratory Rate 16 11/24/24 12:57 Blood Pressure 138/59 L 11/24/24 12:57 Pulse Oximetry 100 11/24/24 12:57 Oxygen Delivery Room Air 11/24/24 12:57 Discharge Plan Discharge Clinical Impression: Pharyngitis Patient Disposition: Home Condition: Stable Instructions: Antibiotic Form, Pharyngitis (ED) Additional Instructions: Cepacol lozenges and ibuprofen should help your symptoms Patient Language: Kazakh Prescriptions: No Action metoprolol succinate 50 mg tablet extended release 24 hr PO hydrochlorothiazide 12.5 mg capsule aripiprazole 5 mg tablet duloxetine 60 mg capsule,delayed release(DR/EC) PO tamsulosin [Flomax] 0.4 mg capsule 0.4 mg PO HS Qty: 14 0RF Follow-up/Referrals: Mercedes,Saji Hoffman MD [Primary Care Provider] - Time of Disposition: 13:02
[2024-11-24 13:04] LABS: EDSTREPNEGPOS1 Negative (Negative)
== END 2024-11-24 13:08 | disposition home or self-care (01) ==
PROVIDERS: Emergency Provider Nurse Practitioner; PCP Family Medicine
DX: J02.9 Acute pharyngitis, unspecified (principal); I10 Essential (primary) hypertension
CPT/HCPCS: 87081; 87880; 99213; G0463

== ENCOUNTER 2025-02-02 08:29 | Emergency (ER) | payer OTHER, SELFPAY ==
--- OUTSIDE RECORDS SUMMARY | 2025-02-02 08:31 | XMS_ITS | Encounter Summary ---
Author Organization [facility] Address [address] [place] [address] Care Team Providers Care Driftman Name Role Phone Leo Sharpe MD Primary Care Provider [phone] Encounter Details Date Type Department Care Team (Late Contact Info) Description 05/18/2022 Abstract [facility] [place] [address] [facility] [address] [place] [address] Vikas Barnes, DO [address] [facility] [address] [place] [address] Social History Tobacco Use Types Packs/Day Years Used Date Smoking Tobacco: Never Smokeless Tobacco: Never Alcohol Use Standard Drinks/Week Comments Yes 0 (1 standard drink = 0.6 oz pur e alcohol) occ Comments No Sex and Gender Information Value Date Recorded Sex Assigned at Not on file Legal Sex Female 6:10 AM STUDENT TEACHING COORDINATOR Gender Identity Not on file Sexual Orientation Not on file 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 [facility] [address] [address] 07/22/2025 8:30 AM STUDENT TEACHING COORDINATOR Office Visit [facility] at the [facility] [address] [place] [address] Justino Velasquez MD [address] [facility] [address] [place] [address] documented as of this encounter Visit Diagnoses Not on filedocumented in this encounter Care Teams Driftman Relationship Specialty Start Date End Date Leo Sharpe MD [address] [place] [phone] PCP - General Family Practice 11/07/20 documented as of this encounter
--- OUTSIDE RECORDS SUMMARY | 2025-02-02 08:31 | XMS_ITS | Clinical Summary ---
Author Organization [facility] Address [address] [place] [address] Phone Care Team Providers Care Communication Specialist Name Role Phone Leo Sharpe MD Primary Care Provider [phone] Allergies No known active allergies Medications DULoxetine [...] after last dose 14 Tablet 5 Active fluconazole (DIFLUCAN) 150 mg tablet Take 1 tab (150 mg) by mouth on day one. Take additional tab (150 mg) by mouth 3 days after initial dose 2 Tablet 5 Active Active Problems Problem Noted Date Diagnosed Date Acute head injury without loss of consciousness 02/13/2019 Adjustment disorder with anxiety 06/05/2015 Vaginal discharge 12/16/2011 Resolved Problems Problem Noted Date Diagnosed Date Resolved Date Well woman exam with routine gynecological exam 03/16/2012 10/16/2021 Encounters Date Type Department Care Team Description 01/22/2025 External Device Data [facility] ABSTRACTION Provider, Abstract 01/02/2025 External Device Data [facility] ABSTRACTION Provider, Abstract 01/01/2025 External Device Data [facility] ABSTRACTION Provider, Abstract 12/11/2024 External Device Data [facility] ABSTRACTION Provider, Abstract 12/04/2024 External Device Data [facility] ABSTRACTION Provider, Abstract 11/22/2024 11:59 PM CDT Anesthesia Event [facility] S [facility] [address] [address] [facility] [place] [address] Gianfranco Lopez AA-C 11/08/2024 External Device Data ST[facility] ABSTRACTION [...] on file Legal Sex Female 6:10 AM LABORATORY SUPERVISOR Gender Identity Not on file Sexual Orientation Not on file 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 on file Last Filed Vital Signs Vital Sign Reading Time Taken Comments Blood Pressure 136/93 07/02/2024 12:57 PM LABORATORY SUPERVISOR Pulse 88 07/02/2024 12:57 PM LABORATORY SUPERVISOR Temperature 36.8 C (98.2 F) 07/02/2024 12:57 PM LABORATORY SUPERVISOR Respiratory Rate 20 07/20/2024 9:18 AM LABORATORY SUPERVISOR Oxygen Saturation 98% 07/02/2024 12:57 PM LABORATORY SUPERVISOR Inhaled Oxygen Concentration - - Weight 125.6 kg (277 lb) 07/20/2024 9:18 AM LABORATORY SUPERVISOR Height 162.6 cm (5' 4) 07/02/2024 12:57 PM LABORATORY SUPERVISOR Body Mass Index 47.55 07/02/2024 12:57 PM LABORATORY SUPERVISOR Plan of Treatment Upcoming Encounters Date Type Department Care Team (Late st Contact Info) Description 03/06/2025 3:00 PM CDT Office Visit [facility] GRAPHIC DESIGN PROFESSOR - [address] [place] [address] John Tirado MD [address] [facility] [address] [address] 07/22/2025 8:30 AM LABORATORY SUPERVISOR Office Visit [facility]rology at the [facility] [address] [place] [address] Justino Velasquez MD [address] [facility] [address] [place] [address] Health Maintenance Due Date Last Done Comments HPV VACCINES (1 - 3-dose series) 2001 DTAP/TDAP/TD VACCINES (1 - Tdap) 2005 HEPATITIS B VACCINES (1 of 3 - 19+ 3-dose series) 2005 Pre-Diabetes and Diabetes Screening 12/15/2014 12/16/2011 COVID-19 Vaccine (2 - 2023-2 5 season) 2024 02/09/2021 INFLUENZA VACCINE (#1) 2025 , 03/29/2019, 02/21/2019, Additional history exists PAP SMEAR 11/16/2025 11/16/2022, 10/18, 07/03/2018, Additional history exists CERVICAL CANCER SCREENING 11/17/2027 HPV/Cotest (21-29) 11/17/2027 11/16/2022, 0 10/31/2020, 07/03/2018, Additional history exists HPV/Cotest (30-65) 11/17/2027 11/16/2022, 0 10/31/2020, 07/03/2018, Additional history exists Procedures Procedure Name Priority Date/Time Associated Diagnosis Comments CERV/VAG CYTO AGE BASED SCREEN PAP Routine 11/16/2022 4:00 PM CDT Screening for cervical cancer Well woman exam with routine gynecological exam HEMOGLOBIN A1C Routine 12/16/2011 4:33 PM CDT from Last 3 Months or Most Recently Relevant to Health Maintenance Results * CERV/VAG CYTO AGE BASED SCREEN PAP (11/16/2022 4:00 PM CDT) COMMENT (PAP): [facility] Comment: This order for age-based cervical cancer and STI screening follows ACOG guidelines(PB 168, 140, ODO596). See individual assays for performing site location. CLINICAL INFORMATION [facility] [place] [facility] Comment:None given LAST MENSTRUAL PERIOD [facility] [place] Comment:NONE GIVEN PREV PAP: [facility] [place] [facility] Comment:NONE GIVEN PREV BX: [facility] [place] Comment:NONE GIVEN SOURCE [facility] [place] Comment:Endocervix ADEQUACY: [facility] [place] Comment: Satisfactory for evaluation. Endocervical/transformation zone component present. Age and/or menstrual status not provided PAP INTERP [facility] Comment:Negative for intraep ithelial lesion or malignancy. COMMENT (PAP TEST) [facility] [place] Comment: This Pap test has been evaluated with computer assisted technology. CURBING STONECUTTER: Aayush est Nicanor Blake Comment: AMW, CT(ASCP) CT screening location: [place] [address] [place] [address] REVIEW CURBING STONECUTTER: Marquez Blake Comment: TMK, CT(ASCP) CT screening location: [place] [address] [place] [address] EXPLANATORY NOTE [facility] Nicanor Blake Comment: EXPLANATORY NOTE: The Pap [...] E6/E7 Not Detected Not Detected [facility] [place] Comment: Methodology: Racing Board Marker-Mediated Amplification This assay detects E6/E7 viral messenger RNA (mRNA) from 14 high-risk HPV types (16,18,31,33,35,39,45,51,52,56,58,59,66,68). Cervical sources are required for HPV testing. If a vaginal source from a patient who has had a total hysterectomy with removal of cervix was submitted, please contact the testing laboratory for alternative testing options. For additional information, please refer to http://education.[employer]/faq/YWD597v1 (This link if provided for information/ educational purposes only.) Test Performed at: [facility] [address] [place] [address] Louise Salinas MD Genital SWAB OF ENDOCERVIX / Unknown 11/16/2022 4:00 PM CDT 11/17/2022 12:04 AM CDT Geovanna Zuñiga NP PATHOLOGY/CYTOLOGY ORDERABLES nal Result Performing Organization Address [facility] Co de Phone Number [facility] [phone] [address] * HEMOGLOBIN A1C (12/16/2011 4:33 PM CDT) HEMOGLOBIN A1C 5.2 <5.7 % of total Hgb [facility] Comment: Decreased risk of diabetes <5.7 Decreased risk of diabetes 5.7-6.0 Increased risk of diabetes 6.1-6.4 Higher risk of diabetes > or = 6.5 Consistent with diabetes Standards of Medical Care in Diabetes-2010. Diabetes Care, 33(Supp 1): S1-S61,2010. Test Performed at: [facility] [address] [place] [address] ROWENA SAGE DO,MPH 12/16/2011 4:33 PM CDT John Tirado MD CHEMISTRY ORDERABLES Final Re sult INTERFACE SYSTEM Refer to clinic/hospital department [facility] [employer] [facility] [address] [place] [phone] from Last 3 Months or Most Recently Relevant to Health Maintenance [id number] Care Teams Communication Specialist Relationship Specialty Start Date End Date Leo Sharpe MD [address] [place] [address] PCP - General Family Practice 11/07/20
--- OUTSIDE RECORDS SUMMARY | 2025-02-02 08:31 | XMS_ITS | Encounter Summary ---
Author Organization [facility] Address [address] [place] [address] Care Team Providers Care Crossing Guard Name Role Phone Leo Sharpe MD Primary Care Provider [phone] Encounter Details Date Type Department Care Team (Late Contact Info) Description 05/18/[address] [facility] Spec [place] [address] [facility] [address] [place] [address] Vikas Barnes, DO [address] [facility] [address] [place] [address] Social History Tobacco Use Types Packs/Day Years Used Date Smoking Tobacco: Never Smokeless Tobacco: Never Alcohol Use Standard Drinks/Week Comments Yes 0 (1 standard drink = 0.6 oz pur e alcohol) occ Comments No Sex and Gender Information Value Date Recorded Sex Assigned at Not on file Legal Sex Female 6:10 AM SENIOR BUYER PLANNER Gender Identity Not on file Sexual Orientation Not on file 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 [facility] [facility] [address] [address] 07/22/2025 8:30 AM SENIOR BUYER PLANNER Office Visit [facility] Urology at the [facility] [address] [place] [address] Justino Velasquez MD [address] [facility] [address] [place] [address] documented as of this encounter Visit Diagnoses Not on filedocumented in this encounter Care Teams Crossing Guard Relationship Specialty Start Date End Date Leo Sharpe MD [address] [place] [phone] PCP - General Family Practice 11/07/20 documented as of this encounter
--- OUTSIDE RECORDS SUMMARY | 2025-02-02 08:31 | XMS_ITS ---
Author Organization [facility] Address [address] [id number] Care Team Providers Care Cattle Examiner Name Role Phone Vikas Barnes DO Unavailable [phone] REASON FOR VISIT EST. pt, coming back to regroup Encounters Encounter Location Date Provider Diagnosis [facility] [address] [id number] 11/15/2024 Vikas Barnes Plan Of Treatment No Information Progress Notes * GUICHO ROSALINDADOB:1985 (39 yo F)Acc No.[id number]:11/15/2024 Patient: ROSALINDA LUAJN Provider: Adam Barnes DO :1985 A ge:39 Y S ex:Female Date:11/15/2024 Address:[address] Subjective: * Chief Complaints: * 1 . EST. pt, coming back to regroup. * Medical History: Objective: * Vitals: Past Vitals:* 12/14/2023 Wt:273.2, BMI:46.89, BP:124/ 85 * 12/14/2023 Wt:273.2, BMI:46.89, BP:124/ 85 Assessment: Plan: * Treatment: * Billing Information: * Visit Code: * Procedure Codes: * Electronic signature of Olegario Barnes DO, [id number] on 02/02/2025 at 08:31 AM CDT Sign off status: Pending * Provider: Adam Barnes DO Date: 11/15/2024 Generated for Mook rajput/Tammy/Charitysmitting on: 0 02/02/2025 08:31 AM CDT
--- OUTSIDE RECORDS SUMMARY | 2025-02-02 08:31 | XMS_ITS | Encounter Summary ---
Author Organization [facility] Address [address] [place] [address] Care Team Providers Care Product Support Specialist Name Role Phone Leo Sharpe MD Primary Care Provider [phone] Encounter Details Date Type Department Care Team (Late Contact Info) Description 07/05/2024 Results Follow-Up [facility] BIT TRIPOLER - [facility] [id number] [address] Gracy Lee, TIFFANY [address] [facility] [address] [place] [address] VAGINOSIS/VAGINITIS PANEL BASIC, URINE CULTURE Social History Tobacco Use Types Packs/Day Years Used Date Smoking Tobacco: Never Smokeless Tobacco: Never Alcohol Use Standard Drinks/Week Comments Not Currently 0 (1 standard drink = 0.6 oz pur e alcohol) occ Comments No Sex and Gender Information Value Date Recorded Sex Assigned at Not on file Legal Sex Female 6:10 AM GAS DISPENSER Gender Identity Not on file Sexual Orientation Not on file 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 on file documented as of this encounter Plan of Treatment Upcoming Encounters Date Type Department Care Team (Late Contact Info) Description 03/06/2025 3:00 PM CDT Office Visit [facility] BIT TRIPOLER - [facility] [address] [facility] [address] [place] [address] John Tirado MD [address] [place] [address], [place] [address] 07/22/2025 8:30 AM GAS DISPENSER Office Visit [facility] [address] [facility] [address] [place] [address] Justino Velasquez MD [address] [facility] [address] [place] [address] documented as of this encounter Visit Diagnoses Not on filedocumented in this encounter Care Teams Product Support Specialist Relationship Specialty Start Date End Date Leo Sharpe MD [facility] [place] [address] PCP - General Family Practice 11/07/20 documented as of this encounter
--- OUTSIDE RECORDS SUMMARY | 2025-02-02 08:31 | XMS_ITS | Clinical Summary ---
Author Organization [facility] Address [address] [place] [address] Care Team Providers Care Quarter Section Ironer Name Role Phone Dl Flaherty MD Primary Care Provider [phone] Source Comments [facility],non-owned Affiliates and Associated Physician Practices is amultiple site organization consisting of ambulatory clinics and hospital sitesin [place], [place], [place] and [place]. This disclosure is being madepursuant to the Care Everywhere program and may not contain all information available regarding this patient. Last updated 18.[facility] Allergies No known active allergies Medications * [...] Comments Blood Pressure 118/60 07/27/2018 9:20 AM SOLAR SALES ASSOCIATE Pulse 87 07/27/2018 9:20 AM SOLAR SALES ASSOCIATE Temperature 36.5 C (97.7 F) 07/27/2018 9:20 AM SOLAR SALES ASSOCIATE Respiratory Rate - - Oxygen Saturation 99% 07/27/2018 9:20 AM SOLAR SALES ASSOCIATE Inhaled Oxygen Concentration - - Weight 99.8 kg (220 lb) 07/27/2018 9:20 AM SOLAR SALES ASSOCIATE Height 162.6 cm (5' 4) 07/27/2018 9:20 AM SOLAR SALES ASSOCIATE Body Mass Index 37.76 07/27/2018 9:20 AM SOLAR SALES ASSOCIATE Plan of Treatment Health Maintenance Due Date Last Done Comments HIV SCREENING 2001 HEPATITIS C SCREENING 11/01/2004 DTAP/TDAP/TD VACCINES (1 - Tdap) 2005 HEPATITIS B VACCINE (1 of 3 - 19+ 3-dose series) 2005 HPV VACCINE (1 - 3-dose SCDM series) 2013 PAP with HPV 2016 COVID-19 VACCINE ( - 2023-2 5 season) 2024 DEPRESSION SCREENING 06/20/2024 INFLUENZA VACCINE (#1) 2025 ZOSTER VACCINE (1 of 2) 2036 [...] to complete this topic Insurance Care Teams Quarter Section Ironer Relationship Specialty Start Date End Date Dl Flaherty MD [phone] (work) PCP - General Family Medicine 09/23/17
--- OUTSIDE RECORDS SUMMARY | 2025-02-02 08:31 | XMS_ITS | Clinical Summary ---
Author Organization [facility] Address [address] [place] [address] Phone Care Team Providers Care Dimethylaniline Sulfator Operator Name Role Phone Saji Long MD Primary Care Provider [phone] Allergies No known active allergies Medications DULoxetine [...] Comments Blood Pressure 118/73 08/14/2023 1:30 AM CARGO BROKER Pulse 83 08/14/2023 1:30 AM CARGO BROKER Temperature 36.4 C (97.6 F) 08/14/2023 12:00 AM CARGO BROKER Respiratory Rate 18 08/14/2023 1:30 AM CARGO BROKER Oxygen Saturation 97% 08/14/2023 1:30 AM CARGO BROKER Inhaled Oxygen Concentration - - Weight 121.6 kg (268 lb) 08/14/2023 12:00 AM CARGO BROKER Height 162.6 cm (5' 4) 08/14/2023 12:00 AM CARGO BROKER Body Mass Index 46 08/14/2023 12:00 AM CARGO BROKER Plan of Treatment Health Maintenance Due Date Last Done Comments Hepatitis C Virus (HCV) Screening 1985 TdaP Immunization 1986 Hepatitis B Immunization (1 of 3 - 19+ 3-dose series) 2005 Pneumococcal Immunization Combined (1 of 2 - PCV) 2005 Pap Smear 11/07/2007 Human Papillomavirus (HPV) Immunization (1 - 3-dose SCDM series) 2013 Cervical Cancer Screening (CCS) 2016 HPV/Cotest 2016 SARS-COV-2 Immunization (2 - season) 2024 02/09/2021 Influenza Immunization (#1) 02/18/202503/20, 04/20/2018 Respiratory Syncytial Virus (RSV) Immunization (Adult) (1 - 1-dose 75+ series) 2061 Meningococcal Immunization (ACWY) Aged Out No longer eligible b ased on patient's age to complete this topic Rotavirus Immunization Aged Out No lo nger eligible based on patient's age to complete this topic Insurance [address] [address] Care Teams Dimethylaniline Sulfator Operator Relationship Specialty Start Date End Date Saji Long MD [facility] [place] [address] PCP - General Electromechanical Engineer 08/14/23
--- OUTSIDE RECORDS SUMMARY | 2025-02-02 08:32 | XMS_ITS | Patient Health Record ---
Author Organization [facility] Address [address] [place], [place] [address] Care Team Providers Care Dot Net Architect Name Role Phone Vikas Barnes DO Unavailable [phone] Allergies Allergen (clinical drug ingredient) Drug/Non Drug [...] day Unknown Abilify Unknown Wellbutrin *Reorder from [employer] for eRx and Interaction Alerts* Unknown Metoprolol Tartrate Unknown DULoxetine HCl 60 MG 1 capsule Orally Once a day Unknown Problems Problem Type SNOMED Code ICD Code Onset Dates Problem Status W/U Status Risk Notes Problem Gastro-esophagea l reflux disease without esophagitis (082009012) Gastro-esophagea l reflux disease without esophagitis (K21.9) Active confirmed Problem Essential hypertension (84394266) Essential hypertension (I10) Active confirmed Problem Morbid obesity (706507174) Morbid obesity (E66.01) Active confirmed Problem Body mass index 40+ - severely obese (180274011) BMI 45.0-49.9, adult (Z68.42) Active confirmed Problem Generalized arthritis (182724995) Generalized arthritis (M19.90) Active confirmed Problem Anxiety (18826040) Anxiety (F41.9) Active confirmed Problem Chronic depression (965895411) Chronic depression (F32.A) Active confirmed Problem Backache (968568675) Dorsalgia (M54.9) Active confirmed Problem Bipolar disorder (64524181) Bipolar disease, chronic (F31.9) Active confirmed Procedures Procedure Date Ordered Date Performed Result Body Sit e ESOPHAGOGASTRODUODENOSCOPY 02/28/2024 N/A Encounters Encounter Location Date Provider Diagnosis [facility] [address] [place] [address] 11/23/2024 Vikas Barnes [facility] [address] [id number] 02/28/2024 Vikas Barnes Gastro-esophageal reflux disease without esophagitis K21.9 [facility] [address] [id number] 04/11/2024 Vikas Barnes [facility] [address] [facility] [address] [id number] 04/30/2024 Vikas Barnes [facility] [address] [id number] 05/11/2024 Vikas Barnes [facility] [address] [facility] [address] [id number] 10/19/2024 Vikas Barnes [facility] [address] [facility] [address] [id number] 10/24/2024 Vikas Barnes [facility] [address] [id number] 10/26/2024 Vikas Barnes Assessments Encounter Date Diagnosis (ICD Code) Assessment Notes Treatment Notes Treatment Clinical Notes Section Notes 02/28/2024 Gastro-esophagea l reflux disease without esophagitis (ICD-10 - K21.9) 11/01/2024 Other Plan Of Treatment Pending Test Test Name Order Date Upper gastrointestinal (UGI) series 11/19 ESOPHAGOGASTRODUODENOSCOPY 12/14/2023 ESOPHAGOGASTRODUODENOSCOPY 02/28/2024 Insurance Providers Payer Name Payer Address Payer Phone Subscriber Number Group Number Insured Name Patient Relationship to Insured Coverage Start Date Coverage End Date [facility] [address] [place] [id number] ROSALINDA LINDO Self - patient is the insured Medical (General) History Medical History History ICD Code Anxiety Depression Hypertension Snoring Gastroesophageal reflux disease Anemia Obesity Bipolar disorder Joint pain Anxiety Surgical History Surgery Date(Month/Year) Operation on facial joint 2002 Breast reduction, Dr. Espinal 2006
--- OUTSIDE RECORDS SUMMARY | 2025-02-02 08:32 | XMS_ITS ---
Author Organization [facility] Address [address] [facility] [address] [place], [place] [phone] Care Team Providers Care Lead Painter Name Role Phone Cameron SALDANA Vikas Unavailable [phone] Allergies Allergen (clinical drug ingredient) Drug/Non Drug [...] day Unknown Abilify Unknown Wellbutrin *Reorder from [employer] for eRx and Interaction Alerts* Unknown Metoprolol Tartrate Unknown DULoxetine HCl 60 MG 1 capsule Orally Once a day Unknown Encounters Encounter Location Date Provider Diagnosis [facility] [address] [facility] [address] [place], [place] [phone] 11/01/2024 Vikas Barnes Assessments Encounter Date Diagnosis [...] Notes * ROSALINDA LINDODOB:1985 (39 yo F)Acc No.[id number]:11/01/2024 Patient: ROSALINDA LUJAN Provider: Adam Barnes DO :1985 A ge:38 Y S ex:Female Date:11/01/2024 Address:[address] [place], [place] [id number] Subjective: * Chief Complaints: * 1 . [...] Wellbutrin , Notes to Pharmacist: *Reorder from [employer] for eRx and Interaction Alerts*, Unknown Metoprolol [...] * Electronic signature of Olegario Barnes DO, [id number] on 02/02/2025 at 08:31 AM CDT Sign off status: Pending * Provider: Adam Barnes DO Date: 0 11/01/2024 Generated for Mook rajput/Tammy/Lasha on: 0 02/02/2025 08:31 AM CDT History and Physical Notes * HPI [...]
--- OUTSIDE RECORDS SUMMARY | 2025-02-02 08:32 | XMS_ITS | Patient Health Record ---
Author Organization [facility] Address [address] [place] [address] Care Team Providers Care Accident Investigator Name Role Phone Saji Long MD Primary Care Provider Chong Borges Unavailable [phone] Reason For Referral No Information Medications Medication [...] Female Encounters Encounter Location Date Provider Diagnosis [facility] [address] [place] [address] 05/14/2024 Chong Geiger Plan Of Treatment No Information Insurance Providers Payer Name Payer Address Payer Phone Subscriber Number Group Number Insured Name Patient Relationship to Insured Coverage Start Date Coverage End Date [facility] [address] [place] [address] [id number] GUICHO ROSALINDA Self - patient is the insured
--- OUTSIDE RECORDS SUMMARY | 2025-02-02 08:32 | XMS_ITS ---
Author Organization [facility] Address [address] [place], [place] [address] Care Team Providers Care Steam Hammer Operator Name Role Phone Vikas Barnes DO Unavailable [phone] REASON FOR VISIT EGD LVM to check on check list Encounters Encounter Location Date Provider Diagnosis [facility] [address] [place] [address] 11/23/2024 Vikas Barnes Plan Of Treatment No Information Progress Notes * ROSALINDA LINDODOB:1985 (39 yo F)Acc No.[id number]:11/23/2024 Patient: ROSALINDA LUJAN Provider: Adam Barnes DO :1985 A ge:39 Y S ex:Female Date:11/23/2024 Address:[address] [place], [place] [id number] * Billing Information: * Visit Code: * Procedure Codes: * Electronic signature of Olegario Barnes DO, [id number] on 02/02/2025 at 08:31 AM CDT Sign off status: Pending * Provider: Adam Barnes DO Date: 11/23/2024 Generated for Mook rajput/Tammy/eTalsmitting on: 02/02/2025 08:31 AM CDT
[2025-02-02 08:39] VITALS: BP 137/93; PULSE 67; RESP 16; TEMP 36.1; O2SAT 100
[2025-02-02 08:44] LABS: EDUAAPPEAR Clear; EDUABILI Negative (Negative); EDUABLOOD Negative (Negative); EDUACOLOR1 Tea Colored; EDUAGLUCOSE Negative (Negative); EDUAKETONE Negative (Negative); EDUALEUKO Negative (Negative); EDUANITRATE Negative (Negative); EDUAPH 6.0; EDUAPROTEIN Negative (Negative); EDUASPGRAVITY 1.010; EDUAUROBILI 0.2
--- NOTE | 2025-02-02 09:03 | ED_ITS ---
HPI - Female Genitourinary General Chief complaint: Urogenital-Female Stated complaint: Urinary Problem Source: patient Mode of arrival: ambulatory Limitations: no limitations History of Present Illness HPI Narrative: 39-year-old female presents to [facility] with complaints of urinary frequency, burning and vaginal odor for the past 2 days. Patient history of bacterial vaginosis and feels that her symptoms are the same. Patient reports that she is treated with Flagyl at that time and symptoms resolved. Patient has not had intercourse in 6 years. Last period was 10 days ago. Patient denies fever, body aches, chills, nausea vomiting or diarrhea. Patient denies vaginal itching or vaginal bleeding. MD elicited complaint: dysuria and other (Vaginal odor urinary frequency) Pertinent past history: other (Bacteria vaginosis) Onset (ago): day(s) (2) Vaginal discharge: none Vaginal bleeding: none Urinary symptoms: Dysuria and Frequency Associated symptoms: other (Vaginal odor) Sexual activity: No Patient : No Related Data Home Medications ?Medication ?Instructions ?Recorded ?Confirmed ?Last Taken ?Type aripiprazole 5 mg tablet mg 07/01/24 Unknown History duloxetine 60 mg capsule,delayed mg PO 07/01/24 Unknown History release hydrochlorothiazide 12.5 mg capsule mg 07/01/24 Unknown History metoprolol succinate 50 mg mg PO 07/01/24 Unknown History tablet,extended release 24 hr Allergies Allergy/AdvReac Type Severity Reaction Status Date / Time No Known Allergies Allergy Verified 02/02/25 08:40 Review of Systems Constitutional: Constitutional: Denies chills and Denies fatigue ENT: Denies vertigo, Denies dizziness and Denies epistaxis Cardiovascular: Cardiovascular: Denies chest pain Respiratory: Respiratory: Denies cough, Denies dyspnea and Denies wheezing Gastrointestinal: Gastrointestinal: Denies diarrhea, Denies nausea and Denies vomiting Genitourinary: Genitourinary: Denies abnormal vaginal bleeding, Denies hematuria, Reports nocturia, Denies genital lesions, Reports dysuria, Denies pelvic pain and Denies vaginal discharge Comments: Vaginal odor Musculoskeletal: Musculoskeletal: Denies arthralgias, Denies joint swelling and Denies muscle cramps Integumentary/Breasts: Skin/Breast: Denies rash Neurologic: Denies dizziness, Denies syncope and Denies headache(s) [facility] Past Medical History Medical History Kidney stones Anxiety and depression Hypertension Surgical History Surgical History H/O breast augmentation Family History Family History Mother Family history non-contributory Social History Social History Smoking status: Never smoker Alcohol intake: current Alcohol use details: social Substance use: never Living arrangements: with family Comments At time of signature, I agree with nursing past medical, surgical, social and family history. There is no relevant family history pertinent to the presenting complaint. Exam Const: General: healthy appearing and no acute distress Nutritional Appearance: well nourished Orientation/consciousness: patient oriented x3 Limitations: no limitations Eyes: Conjunctivae: conjunctivae normal Neck: Neck: normal visual inspection Resp: Effort & Inspection: normal respiratory effort and not labored Auscultation: clear to auscultation bilaterally, no crackles, no rales, no rhonchi and no wheezes Cardio: Rate: regular rate Rhythm: regular rhythm Heart sounds: no murmurs : General: Yes bladder normal to palpation and Yes no CVA tenderness Other: Patient declines vaginal exam at this time Back/Spine/Pelvis: Back: no CVA tenderness Skin: General skin exam: normal color Rashes: no rashes Wounds: no wounds Neuro: General: patient oriented x3 and moves all extremities Speech: normal speech Gait exam (Neuro): Normal gait present Extrem: General: normal to inspection Psych: Appearance: grossly normal Affect: normal affect Attitude: cooperative Course Course Level of Care: Express Care Visit Vital Signs Vital signs: Vital Signs Temperature 36.1 C L 02/02/25 08:39 Pulse Rate 67 02/02/25 08:39 Respiratory Rate 16 02/02/25 08:39 Blood Pressure 137/93 H 02/02/25 08:39 Pulse Oximetry 100 02/02/25 08:39 Oxygen Delivery Room Air 02/02/25 08:39 Temperature 36.1 C L 02/02/25 08:39 Pulse Rate 67 02/02/25 08:39 Respiratory Rate 16 02/02/25 08:39 Blood Pressure 137/93 H 02/02/25 08:39 Pulse Oximetry 100 02/02/25 08:39 Oxygen Delivery Room Air 02/02/25 08:39 MDM - Female Genitourinary MDM Narrative Medical decision making narrative: Patient declines vaginal exam at this time. Patient has scheduled follow-up with nursing program coordinator in 2 weeks. Patient agrees take Flagyl as prescribed. Patient agrees to increase water intake. Patient agrees to proceed to the emergency room if symptoms worsen. Differential Diagnosis Differential diagnosis: Likely urinary tract infection, bacterial vaginosis and other (Yeast infection) Lab Data Labs: Lab Results 02/02/25 Range/Units 08:43 POC Urine Color Tea colored POC Urine Clarity Clear POC Urine pH 6.0 POC Ur Specif [place] 1.010 POC Urine Protein Negative (Negative) POC Ur Glucose (UA) Negative (Negative) POC Urine Ketones Negative (Negative) POC Urine Blood Negative (Negative) POC Urine Nitrite Negative (Negative) POC Urine Bilirubin Negative (Negative) POC Urine Urobilinogen 0.2 POC U Leukocyte Esteras Negative (Negative) Critical Care Time Critical Care Time Critical Care Time: No Discharge Plan Discharge Clinical Impression: Vaginal odor Patient Disposition: Home Condition: Stable Instructions: Antibiotic Form Additional Instructions: Take Flagyl as prescribed Avoid alcohol use while taking Flagyl Follow-up with nursing program coordinator as scheduled Increase water intake Proceed to the emergency room if symptoms worsen Patient Language: Sudanese Prescriptions: New metronidazole 500 mg tablet 500 mg PO Q8H 7 Days Qty: 21 0RF metronidazole 500 mg tablet 500 mg PO Q8H 7 Days Qty: 21 0RF No Action metoprolol succinate 50 mg tablet extended release 24 hr PO hydrochlorothiazide 12.5 mg capsule aripiprazole 5 mg tablet duloxetine 60 mg capsule,delayed release(DR/EC) PO tamsulosin [Flomax] 0.4 mg capsule 0.4 mg PO HS Qty: 14 0RF Follow-up/Referrals: Mercedes,Saji Hoffman MD [Primary Care Provider] - Time of Disposition: 09:10
== END 2025-02-02 09:20 | disposition home or self-care (01) ==
PROVIDERS: Emergency Provider Nurse Practitioner Family; PCP Family Medicine
DX: N89.8 Other specified noninflammatory disorders of vagina (principal); I10 Essential (primary) hypertension
CPT/HCPCS: 81003; 99213; G0463